=== PATIENT | female | born 2000 | race African-American/Black ===

== ENCOUNTER 2022-07-30 10:43 | Inpatient (IN) ==
[~2022-07-30 10:43] MED LIST: ceFAZolin 3,000 MG in SYRINGE 1 EACH IV ONE
[2022-07-30 12:00] LABS: Bacteria,Urine Occasional /HPF (Few); Mucus,Urine Many /LPF (Occasional); RBC,Urine 1 /HPF (0-4); Squamous Epithelial Cell,Urine Moderate /HPF (0-10)
[2022-07-30 12:01] LABS: Bilirubin,Urine Small mg/dL (Negative); Blood, Urine Negative (Negative); Glucose,Urine (UA) Negative (Negative); Ketones,Urine Negative (Negative); Nitrite,Urine Negative (Negative); Protein,Urine 30 mg/dL (Negative); Urine Appearance Clear (Clear); Urine Color Yellow (Yellow); Urine Specific Gravity > 1.030 (1.001-1.035); Urine pH 6.5 (4.5-8.0)
[2022-07-30] MEDS ORDERED: OXYTOCIN/LR 20 UNIT/1,000 ML BAG IV ONE ×2 (12:27→17:23)
[2022-07-30] MEDS ORDERED: miSOPROStoL 200 MCG TABLET RECTAL PRN (12:27)
[2022-07-30] MEDS ORDERED: TRANEXAMIC ACID 1,000 MG in SODIUM CHLORIDE 0.9% 100 ML IV PRN (12:27)
[2022-07-30] MEDS ORDERED: FAMOTIDINE 20 MG/2 ML VIAL IV ONE (12:27)
[2022-07-30] MEDS ORDERED: CITRIC ACID/SODIUM CITRATE 30 ML UDCUP PO ONE (12:27)
[2022-07-30] MEDS ORDERED: CARBOPROST TROMETHAMINE 250 MCG/ML AMP IM PRN (12:27)
[2022-07-30] MEDS ORDERED: METHYLERGONOVINE 0.2 MG/1 ML AMP IM PRN (12:27)
[2022-07-30 12:56] LABS: Barbiturates Screen,Urine Negative (Negative); Benzodiazepines Screen,Urine Negative (Negative); Cannabinoid Screen,Urine Positive (Negative); Opiate Screen,Urine Negative (Negative); Phencyclidine Screen,Urine Negative (Negative)
[2022-07-30] MEDS ORDERED: TERBUTALINE 1 MG/1 ML VIAL SUBCUT ONE (13:36)
[2022-07-30] MEDS ORDERED: DIPHENOXYLATE/ATROPINE 2.5-0.025 MG TABLET PO PRN (13:37)
[2022-07-30] MEDS: LACTATED RINGERS 1,000 ML IV SCH ×2 (13:43→15:53)
[2022-07-30 14:14] LABS: Basophils % 0.1 % (0.0-0.8); Eosinophils % 0.2 % (0.00-10.9); Hematocrit 32.8 VOL% (35.7-47.0); Immature Granulocytes % 1.2 %; Immature Granulocytes Absolute 0.12 #; Lymphocytes # 1.2 10*3/uL (1.4-4.0); Lymphocytes % 12.2 % (21.3-54.2); Mean Corpuscular HGB Conc 30.5 GM/DL (32-36); Mean Corpuscular Volume 84.5 FL (87-102); Monocytes # 0.5 10*3/uL (0.11-0.8); Monocytes % 5.2 % (1.7-12.7); Neutrophils % 81.1 % (38.7-73.9); Platelet Count 276 T/CUMM (130-400); Red Blood Count 3.88 MC/CUMM (3.8-5.5); Red Cell Distribution Width 17.9 % (9.3-17.3); White Blood Count 10.1 T/CUMM (4-12)
[2022-07-30 14:45] LABS: Alanine Aminotransferase 14 U/L (13-56); Albumin 2.7 G/DL (3.4-5.0); Alkaline Phosphatase 180 U/L (45-117); Aspartate Amino Transferase 14 U/L (0-37); Bilirubin,Total < 0.39 MG/DL (0.20-1.00); Blood Urea Nitrogen 7 MG/DL (7-18); Calcium 9.1 MG/DL (8.5-10.1); Carbon Dioxide 20 MMOL/L (21-32); Chloride 107 MMOL/L (98-107); Glucose 87 MG/DL (74-106); Osmolality,Calculated 266.1 MOS/KG (273-304); Potassium 3.8 MMOL/L (3.5-5.1); Sodium 135 MMOL/L (136-145)
[2022-07-30] MEDS ORDERED: OXYTOCIN/LR 30 UNIT/1,000 ML BAG IV ONE (14:55)
[2022-07-30] MEDS ORDERED: OXYTOCIN 10 UNIT/ML VIAL IM ONE (14:56)
[2022-07-30] MEDS ORDERED: ceFAZolin 3,000 MG in SYRINGE 1 EACH IV ONE (15:02)
[2022-07-30 15:22] LABS: HIV Antigen/Antibody Result Nonreactive (Nonreactive)
[2022-07-30] MEDS ORDERED: buprenorphine HCL 0.3 MG/ML VIAL ONE (15:23)
[2022-07-30] MEDS ORDERED: BUPIVACAINE SPINAL 0.75% 2 ML AMP SPINAL ONE ×2 (15:23→16:07)
[2022-07-30] MEDS ORDERED: ONDANSETRON 4 MG/2 ML VIAL ONE (15:23)
[2022-07-30] MEDS ORDERED: KETOROLAC 30 MG/1 ML VIAL ONE (15:25)
[2022-07-30] MEDS ORDERED: LIDOCAINE 2% 5 ML VIAL ONE (16:36)
[2022-07-30] MEDS ORDERED: LACTATED RINGERS 1,000 ML IV ONE (16:36)
[2022-07-30 17:05] LABS: Cord Arterial Blood HCO3 19.2 MMOL/L
[2022-07-30 17:07] LABS: Cord Venous Blood HCO3 19.8 MMOL/L; Cord Venous Blood PCO2 43.3 MMHG; Cord Venous Blood PO2 25.7
[2022-07-30] MEDS ORDERED: MAGNESIUM HYDROXIDE SUSP 30 ML UDCUP PO PRN (17:23)
[2022-07-30] MEDS ORDERED: RHO(D) IMMUNE GLOBULIN 300 MCG SYRINGE IM ONE (17:23)
[2022-07-30] MEDS ORDERED: ACETAMINOPHEN 325 MG TABLET PO PRN (17:23)
[2022-07-30] MEDS ORDERED: ONDANSETRON 4 MG/2 ML VIAL IV PRN (17:23)
[2022-07-30] MEDS ORDERED: IBUPROFEN 800 MG TABLET PO PRN (17:23)
[2022-07-30] MEDS ORDERED: SIMETHICONE CHEW 80 MG TABLET PO PRN (17:23)
[2022-07-30] MEDS ORDERED: LACTATED RINGERS 1,000 ML IV SCH (17:30)
[2022-07-30] MEDS: DOCUSATE SODIUM 100 MG CAPSULE PO SCH (22:49)
[2022-07-31 00:45] LABS: Basophils % 0.2 % (0.0-0.8); Eosinophils % 0.4 % (0.00-10.9); Hemoglobin 8.7 GM/DL (12.0-16.0); Immature Granulocytes Absolute 0.09 #; Lymphocytes # 1.2 10*3/uL (1.4-4.0); Lymphocytes % 13.5 % (21.3-54.2); Mean Corpuscular HGB Conc 31.1 GM/DL (32-36); Mean Corpuscular Volume 84.1 FL (87-102); Mean Platelet Volume 9.2 FL (9.6-12.0); Monocytes # 0.7 10*3/uL (0.11-0.8); Monocytes % 7.3 % (1.7-12.7); Neutrophils % 77.6 % (38.7-73.9); Platelet Count 211 T/CUMM (130-400); Red Blood Count 3.33 MC/CUMM (3.8-5.5); Red Cell Distribution Width 17.7 % (9.3-17.3); White Blood Count 9.1 T/CUMM (4-12)
[2022-07-31] MEDS ORDERED: oxyCODONE/ACETAMINOPHEN 5-325 MG TABLET PO PRN (01:44)
[2022-07-31] MEDS: oxyCODONE/ACETAMINOPHEN 5-325 MG TABLET PO PRN ×2 (03:16→18:04)
[2022-07-31 03:31] LABS: Hepatitis B Surface Ag Quant < 0.10 Index; Hepatitis B Surface Ag Result Non-Reactive (NonReactive)
[2022-07-31] MEDS: IBUPROFEN 800 MG TABLET PO PRN ×3 (06:18→20:48)
[2022-07-31 08:19] LABS: Basophils % 0.3 % (0.0-0.8); Eosinophils % 0.5 % (0.00-10.9); Hematocrit 31.4 VOL% (35.7-47.0); Hemoglobin 9.7 GM/DL (12.0-16.0); Immature Granulocytes % 0.6 %; Immature Granulocytes Absolute 0.05 #; Lymphocytes # 1.4 10*3/uL (1.4-4.0); Lymphocytes % 16.4 % (21.3-54.2); Mean Corpuscular HGB Conc 30.9 GM/DL (32-36); Mean Corpuscular Volume 84.6 FL (87-102); Mean Platelet Volume 9.5 FL (9.6-12.0); Monocytes # 0.7 10*3/uL (0.11-0.8); Monocytes % 8.2 % (1.7-12.7); Platelet Count 249 T/CUMM (130-400); Red Blood Count 3.71 MC/CUMM (3.8-5.5); Red Cell Distribution Width 17.9 % (9.3-17.3); White Blood Count 8.7 T/CUMM (4-12)
[2022-07-31] MEDS: METOCLOPRAMIDE 10 MG TABLET PO SCH ×2 (09:14→18:03)
[2022-07-31] MEDS: FERROUS SULFATE 325 MG TABLET PO SCH ×2 (09:15→20:48)
[2022-07-31] MEDS: MULTIVITAMIN (PRENATAL) TABLET PO SCH (09:15)
[2022-07-31] MEDS: DOCUSATE SODIUM 100 MG CAPSULE PO SCH ×2 (09:15→20:48)
[2022-08-01] MEDS: oxyCODONE/ACETAMINOPHEN 5-325 MG TABLET PO PRN (00:21)
[2022-08-01] MEDS: METOCLOPRAMIDE 10 MG TABLET PO SCH ×2 (01:41→09:30)
[2022-08-01] MEDS: IBUPROFEN 800 MG TABLET PO PRN (06:28)
[2022-08-01 08:58] VITALS: BP 139/75
[2022-08-01] MEDS: MULTIVITAMIN (PRENATAL) TABLET PO SCH (09:30)
[2022-08-01] MEDS: FERROUS SULFATE 325 MG TABLET PO SCH (09:30)
[2022-08-01] MEDS: DOCUSATE SODIUM 100 MG CAPSULE PO SCH (09:30)
== END 2022-08-01 11:05 | disposition home or self-care (01) | DRG 540 ==
LOC: N.LD 10:43 → N.OB 21:50
PROVIDERS: ADMIT Obstetrics & Gynecology; ATTEND Obstetrics & Gynecology
PROC: LDCSECT (ICD-10-PCS; 2022-07-30 16:00)